=== PATIENT | female | born 1950 | race Caucasian/White ===

== ENCOUNTER 2021-08-02 10:44 | Outpatient (CLI) | payer MEDICARE, OTHER ==
--- NOTE | 2021-08-02 13:40 | DEXA Report ---
PROCEDURE: Dexa Spine and/or Hip INDICATIONS: OSTEOPOROSIS TECHNIQUE: Dual energy x-ray absorptiometry (DXA) was performed on a [employer] System. Regions measur ed are the AP Spine, femoral neck, and if needed forearm. COMPARISON: None. FINDINGS: Lumbar Spine: Bone Mineral Density 1.312 g/cm/cm,T score 1.1, normal Left Hip: Bone Mineral Density 0.768 g/cm/cm,T score -1.9, osteopenia (T score greater or equal to -1.0: NORMAL) (T score from -1.1 to -2.4: OSTEOPENIA) (T score less than or equal to -2.5 to: OSTEOPOROSIS) Impression: 1. Left femoral neck bone mineral density consistent with osteopenia Patients with diagnosis of osteoporosis or osteopenia should have regular bone mineral density assess ment. For those eligible for Medicare, routine testing is allowed once every 2 years. Testing frequ ency can be increased for patients who have rapidly progressing disease or for those who are receivin g medical therapy to restore bone mass. Reviewed by: Michael Fu MD on 08/02/2021 12:39 PM NIKHIL Approved by: Michael Fu MD on 08/02/2021 12:39 PM NIKHIL Station ID: [id number]
== END 2021-08-02 10:45 | disposition home or self-care (01) ==
LOC: DI 10:44
PROVIDERS: ATTEND Internal Medicine
DX: M85.88 Other specified disorders of bone density and structure, other site (principal)

== ENCOUNTER 2021-09-19 15:35 | Outpatient (CLI) | payer MEDICARE, OTHER ==
--- NOTE | 2021-10-02 10:22 | Mammography Report ---
BILATERAL DIGITAL SCREENING MAMMOGRAM 3D/2D: 09/19/2021 CLINICAL: Routine screening. No prior exams were available for comparison. The tissue of both breasts is heterogeneously dense. T his may lower the sensitivity of mammography. There is a round asymmetry with an indistinct margin in the left breast central to the nipple in the retroareolar region. No other significant masses, calcifications, or other findings are seen in either breast. IMPRESSION: INCOMPLETE: NEEDS ADDITIONAL IMAGING EVALUATION The round asymmetry in the left breast is indeterminate. Additional views with possible ultrasound a re recommended. Based on the Tyrer Cuzick model (a risk assessment model) the patients lifetime risk is 7.8% and her 10 year risk is 4.9%. According to the ACR, ACS, and NCCN guidelines, an annual breast MRI exam silvina g with mammogram is recommended if the patients lifetime risk is 20% or greater. This exam was interpreted at Station ID: [id number]. NOTE: For mammograms, a report in lay terms will be sent to the patient. Approximately 15% of breast malignancies will not be visualized mammographically. In the management of a palpable breast mass, a negative mammogram must not discourage biopsy of a clinically suspicious lesion. Electronically Signed By: Payton lee/laureano:09/29/2021 17:00:11 ACR BI-RADS Category 0: Incomplete 3340F PARENCHYMAL PATTERN: (D) - The breast(s) demonstrate(s) heterogeneously dense fibroglandular parenchy ma. BI-RADS CATEGORY: (0) - 0 Mammo and [place] [id number] Immediate follow-up LATERALITY: (B)
== END 2021-09-19 15:36 | disposition home or self-care (01) ==
LOC: DI.N 15:35
PROVIDERS: ATTEND Internal Medicine
DX: Z12.31 Encounter for screening mammogram for malignant neoplasm of breast (principal); R92.8 Other abnormal and inconclusive findings on diagnostic imaging of breast

== ENCOUNTER 2022-10-30 12:33 | Outpatient (CLI) | payer MEDICARE, OTHER ==
--- NOTE | 2022-10-30 17:40 | XRAY Report ---
PROCEDURE: Hip w/Pelvis 2-3V LT INDICATIONS: HIP PAIN TECHNIQUE: AP pelvis with lateral view(s) of the left hip(s). COMPARISON: None. FINDINGS: Bones: No fractures or dislocations. Asymmetric severe left hip joint osseous arthritis is seen. No definite avascular necrosis of femoral head. No suspicious bony lesions. Soft tissues: No suspicious soft tissue calcifications or masses. IMPRESSION: Asymmetric severe left hip joint osteoarthritis. No acute fracture or dislocation. No definite avascu lar necrosis of femoral head. Reviewed by: Oli Moss MD on 10/30/2022 5:38 PM PDT Approved by: Oli Moss MD on 10/30/2022 5:38 PM PDT Station ID: [id number]
== END 2022-10-30 12:34 | disposition home or self-care (01) ==
LOC: DI 12:33
PROVIDERS: ATTEND Internal Medicine
DX: M16.12 Unilateral primary osteoarthritis, left hip (principal)

== ENCOUNTER 2023-02-14 10:43 | Emergency (ER) | payer MEDICARE, OTHER ==
--- NOTE | 2023-02-14 11:07 | ED Physician Documentation ---
PD HPI UPPER EXT INJURY - Stated complaint Stated Complaint: RT ARM BRUISE - Chief complaint Chief Complaint: Ext Problem - History obtained from History obtained from: Patient - History of Present Illness Location: Right, Arm Type of injury: Twist Where injury occurred: Home Timing - onset: Today (she has had some pains in upper biceps area that she is using voltaren cream on it twice daily. Onset after twisting upper arm carrying heavier grocery bag. Lst night and today noted progressive bruising mid to lower anterior upper arm without tenderness. Is in area using the voltaren.), Last night Timing - duration: Days (1 day of the bruising developing. Has had pain uper arm for few days.) Timing - details: Gradual onset, Still present Worsened by: Moving Associated symptoms: Discolored (purple bruising color.). 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 - Present Medications Home Medications: Ambulatory Orders Medication Instructions Recorded Confirmed Alendronate [Fosamax] 70 mg PO Q7D 02/14/23 02/14/23 Atorvastatin [Lipitor] 10 mg ORAL QPM 02/14/23 02/14/23 Metoprolol Succinate [Toprol Xl] 25 mg PO DAILY 02/14/23 02/14/23 methIMAzole [Methimazole] 5 mg ORAL DAILY 02/14/23 02/14/23 - Allergies Allergies/Adverse Reactions: Allergies Allergy/AdvReac Type Severity Reaction Status Date / Time Penicillins Allergy Rash Verified 02/14/23 10:56 - Social History Does the pt smoke?: No Smoking Status: Never smoker Does the pt drink ETOH?: Yes Does the pt have substance abuse?: No - Immunizations Immunizations are current?: Yes PD ED PE NORMAL - Vitals Vital signs reviewed: Yes - General General: Alert and oriented X 3, No acute distress, Well developed/nourished - Derm Derm: Normal color, Warm and dry - Extremities Extremities: Other (right anterior upper arm in biceps area with purple nontender bruising starting in stright line across mid biceps and then extending down to elbow area. Biceps mild tender above the bruis area but muscle and tenonds feel intact. strong flexion at elbow but does hurt some up higher. ) - Neuro Neuro: Alert and oriented X 3, No motor deficit, No sensory deficit Results - Vitals Vitals: Oxygen O2 Source Room air PD Medical Decision Making - ED course Complexity details: considered differential (nontender purple darker bruising showing up in area of lower anterio upper arm. I presume she tore some muscle fibers with the injury and the hematoma/blood is slowly leaching out to skin. ), d/w patient Departure - Departure Disposition: 01 Home, Self Care Clinical Impression: Hematoma, Bruising Condition: Stable Record reviewed to determine appropriate education?: Yes Instructions: ED Hematoma Comments: In my view of this, looks more like a hematoma from an injury in the upper arm/biceps with the blood now migrating to the surface. It does not look like a contact dermatitis or a local effect from the Voltaren topical which shorter expect to look more like small broken capillaries or surface blood vessels and not deeper bruising coming out from underneath. Presumption you had some partial tear of the biceps muscle and the blood is now migrating out. It may descend even further down the upper arm or around the elbow with gravity and time. Activity as tolerated but I would avoid particularly heavy lifting and such with the biceps for the next week or so. Tylenol ibuprofen as needed for pains. You can continue the topical gel as well if you wish though a oral ibuprofen or naproxen may be more effective. Forms: PCP List Discharge Date/Time: 02/14/23 11:49
[2023-02-14 11:51] VITALS: BP 155/89; O2SAT 98
== END 2023-02-14 11:49 | disposition home or self-care (01) ==
LOC: ED 10:43
DX: S40.021A Contusion of right upper arm, initial encounter (principal); X58.XXXA Exposure to other specified factors, initial encounter
CPT/HCPCS: 99282; 99283